=== PATIENT | female | born 1965 | race Hispanic/Latino ===

== ENCOUNTER 2016-05-05 20:25 | Emergency (ER) | payer MEDICAID ==
[2016-05-05 20:50] VITALS: BP 159/99
[2016-05-05 21:18] LABS: Basophils % (Auto) 0.7 % (0.0-1.8); Eosinophils % (Auto) 1.9 % (0.0-4.3); Hemoglobin 14.5 gm/dl (10.1-14.3); Mean Corpuscular HGB Conc 34 % (30-34); Mean Corpuscular Hemoglobin 28 pg (28-32); Mean Corpuscular Volume 83 fl (79-97); Platelet Count 373 K/mm3 (140-440); Red Blood Count 5.18 M/mm3 (3.65-5.03); Red Cell Distribution Width 13.2 % (13.2-15.2); White Blood Count 7.2 K/mm3 (4.5-11.0)
[2016-05-05 21:38] LABS: Anion Gap 18 mmol/L; BUN/Creatinine Ratio 8.75; Blood Urea Nitrogen 7 mg/dL (7-17); Calcium 9.4 mg/dL (8.4-10.2); Carbon Dioxide 25 mmol/L (22-30); Chloride 101.7 mmol/L (98-107); Glucose 93 mg/dL (65-100); Potassium 3.4 mmol/L (3.6-5.0); Sodium 141 mmol/L (137-145)
--- NOTE | 2016-05-06 19:33 | ED Elopement Review ---
ED Pt Elopement review - Results review Lab results: Laboratory Tests 05/05/16 05/05/16 21:10 21:10 WBC 7.2 RBC 5.18 H Hgb 14.5 H Hct 43.0 H MCV 83 MCH 28 MCHC 34 RDW 13.2 Plt Count 373 Lymph % (Auto) 19.5 [place] % (Auto) 6.9 Eos % (Auto) 1.9 Baso % (Auto) 0.7 Lymph # 1.4 [place] # 0.5 Eos # 0.1 Baso # 0.0 Seg Neutrophils % 71.0 H Seg Neutrophils # 5.1 Sodium 141 Potassium 3.4 L Chloride 101.7 Carbon Dioxide 25 Anion Gap 18 BUN 7 Creatinine 0.8 Estimated GFR > 60 BUN/Creatinine Ratio 8.75 Glucose 93 Calcium 9.4 Troponin T < 0.010 - Call Back decision Pt Call Back Decision: No action required
== END 2016-05-06 00:30 | disposition left against medical advice (07) ==
LOC: ED 20:25
DX: R07.9 Chest pain, unspecified (principal); I10 Essential (primary) hypertension; J45.909 Unspecified asthma, uncomplicated; M19.90 Unspecified osteoarthritis, unspecified site; Z88.6 Allergy status to analgesic agent; Z88.5 Allergy status to narcotic agent; Z88.8 Allergy status to other drugs, medicaments and biological substances; Z53.21 Procedure and treatment not carried out due to patient leaving prior to being seen by health care provider
CPT/HCPCS: 36415; 80048; 84484; 85025; 93005; 93010

== ENCOUNTER 2018-06-14 12:17 | Emergency (ER) | payer MEDICAID ==
[2018-06-14] MEDS ORDERED: ASPIRIN PO ONE (12:27)
[2018-06-14 12:28] VITALS: BP 137/94
[2018-06-14 12:46] LABS: Basophils # (Auto) 0.1 K/mm3 (0.0-0.1); Basophils % (Auto) 0.6 % (0.0-1.8); Eosinophils % (Auto) 0.5 % (0.0-4.3); Hematocrit 41.1 % (30.3-42.9); Lymphocytes # (Auto) 2.8 K/mm3 (1.2-5.4); Lymphocytes % (Auto) 29.4 % (13.4-35.0); Mean Corpuscular HGB Conc 34 % (30-34); Mean Corpuscular Volume 87 fl (79-97); Monocytes # (Auto) 0.7 K/mm3 (0.0-0.8); Monocytes % (Auto) 7.4 % (0.0-7.3); Platelet Count 340 K/mm3 (140-440); Red Cell Distribution Width 13.5 % (13.2-15.2)
[2018-06-14 13:19] LABS: BUN/Creatinine Ratio 16; Blood Urea Nitrogen 13 mg/dL (7-17); Calcium 9.4 mg/dL (8.4-10.2); Hemolysis Index 20
--- NOTE | 2018-06-14 13:51 | XRay Report ---
PROCEDURE: XR CHEST 1V AP TECHNIQUE: Single frontal view of the chest HISTORY: Chest Pain COMPARISONS: None. FINDINGS: The cardiomediastinal silhouette is normal in appearance. The lungs are clear without focal consolidation. No pleural effusion or pneumothorax. No acute bony or soft tissue abnormality. IMPRESSION: No acute cardiopulmonary disease. This document is electronically signed by Ramona Turcios MD., June 14 2018 01:49:42 PM ET
--- NOTE | 2018-06-14 15:39 | Emergency Department Report ---
ED General Adult HPI - General Chief complaint: Chest Pain Stated complaint: CHEST PAIN/HEADACHE Time Seen by Provider: 06/14/18 14:59 Source: patient Mode of arrival: Ambulatory Limitations: No Limitations - History of Present Illness Initial comments: Patient is 52 years old female with history of anxiety and migraine. Patient presented to the ER complaining of generalized numbness, chest pain described as tightness associated with right shoulder pain. Patient denied any shortness of breath, fever or cough. Severity scale (0 -10): 10 - Related Data Home Medications Medication Instructions Recorded Confirmed Last Taken Amitriptyline [Elavil] 25 mg PO QHS 06/10/14 06/10/14 06/10/14 HYDROcodone/APAP 7.5-325 06/10/14 06/10/14 06/10/14 Lisinopril/Hydrochlorothiazide 1 tab PO QDAY 06/10/14 06/10/14 06/10/14 [Zestoretic 20-12.5 mg] Loratadine [Claritin] 10 mg PO DAILY 06/10/14 06/10/14 06/10/14 Omeprazole [PriLOSEC] 20 mg PO BID 06/10/14 06/10/14 06/10/14 Slimquick 06/10/14 06/10/14 06/10/14 Terbinafine (Nf) [LamiSIL] 250 mg PO QDAY 06/10/14 06/10/14 06/10/14 Tizanidine HCl [Zanaflex] 4 mg PO BID 06/10/14 06/10/14 06/10/14 diazePAM [Diazepam] 10 mg PO BID 06/10/14 06/10/14 06/10/14 Allergies Allergy/AdvReac Type Severity Reaction Status Date / Time ibuprofen AdvReac Unknown Verified 06/14/18 12:18 morphine AdvReac Unknown Verified 06/14/18 12:18 tramadol AdvReac Unknown Verified 06/14/18 12:18 ED Review of Systems ROS: Stated complaint: CHEST PAIN/HEADACHE Other details as noted in HPI Comment: All other systems reviewed and negative Constitutional: denies: chills, fever Respiratory: denies: cough, orthopnea, shortness of breath, SOB with exertion, SOB at rest, wheezing Cardiovascular: denies: chest pain, palpitations Gastrointestinal: denies: abdominal pain, nausea, vomiting, diarrhea, constipation, hematemesis, melena, hematochezia Musculoskeletal: denies: back pain Neurological: numbness. denies: headache, weakness, paresthesias, confusion, abnormal gait Psychiatric: anxiety ED Past Medical Hx - Past Medical History Hx Hypertension: Yes Hx Asthma: Yes Additional medical history: arthritis. vertigo - Surgical History Hx Cholecystectomy: Yes Additional Surgical History: tubal ligation - Social History Smoking Status: Former Smoker Substance Use Type: None - Medications Home Medications: Home Medications Medication Instructions Recorded Confirmed Last Taken Type Amitriptyline [Elavil] 25 mg PO QHS 06/10/14 06/10/14 06/10/14 History HYDROcodone/APAP 7.5-325 06/10/14 06/10/14 06/10/14 History Lisinopril/Hydrochlorothiazide 1 tab PO QDAY 06/10/14 06/10/14 06/10/14 History [Zestoretic 20-12.5 mg] Loratadine [Claritin] 10 mg PO DAILY 06/10/14 06/10/14 06/10/14 History Omeprazole [PriLOSEC] 20 mg PO BID 06/10/14 06/10/14 06/10/14 History Slimquick 06/10/14 06/10/14 06/10/14 History Terbinafine (Nf) [LamiSIL] 250 mg PO QDAY 06/10/14 06/10/14 06/10/14 History Tizanidine HCl [Zanaflex] 4 mg PO BID 06/10/14 06/10/14 06/10/14 History diazePAM [Diazepam] 10 mg PO BID 06/10/14 06/10/14 06/10/14 History ED Physical Exam - General Limitations: No Limitations General appearance: alert, in no apparent distress, anxious - Head Head exam: Present: atraumatic, normocephalic, normal inspection - Eye Eye exam: Present: normal appearance, PERRL - ENT ENT exam: Present: normal exam, normal orophraynx, mucous membranes moist - Neck Neck exam: Present: normal inspection, full ROM. Absent: tenderness, meningismus, lymphadenopathy, thyromegaly - Respiratory Respiratory exam: Present: normal lung sounds bilaterally - Cardiovascular Cardiovascular Exam: Present: regular rate, normal rhythm, normal heart sounds - GI/Abdominal GI/Abdominal exam: Present: soft, normal bowel sounds. Absent: distended, tenderness, guarding, rebound, rigid, diminished bowel sounds, organomegaly, mass, bruit, pulsatile mass - Extremities Exam Extremities exam: Present: normal inspection, full ROM, normal capillary refill - Back Exam Back exam: Present: normal inspection, full ROM. Absent: tenderness, CVA tenderness (R), CVA tenderness (L), muscle spasm, paraspinal tenderness, vertebral tenderness - Neurological Exam Neurological exam: Present: alert, oriented X3, CN II-XII intact, normal gait, reflexes normal - Psychiatric Psychiatric exam: Present: anxious. Absent: depressed, agitated, flat affect, manic, homicidal ideation, suicidal ideation - Skin Skin exam: Present: warm, intact, normal color ED Course Vital Signs 06/14/18 12:26 Temperature 98.4 F Pulse Rate 96 H Respiratory 20 Rate Blood Pressure 137/94 O2 Sat by Pulse 97 Oximetry ED Medical Decision Making - Lab Data Result diagrams: 06/14/18 12:37 06/14/18 12:34 - EKG Data -: EKG Interpreted by Ne EKG shows normal: sinus rhythm Rate: normal - EKG Data Interpretation: no acute changes - Radiology Data Radiology results: report reviewed Chest x-ray is unremarkable. - Medical Decision Making Patient is 52 years old female with history of anxiety and migraine. Patient presented to the ER complaining of generalized numbness, chest pain described as tightness associated with right shoulder pain. Patient denied any shortness of breath, fever or cough. Patient EKG did not show any ST elevation or depression. Chest x-ray is unremarkable. 2 sets of troponin is negative. D-dimer is negative. Patient is dealing with a lot of stress and anxiety. I advised patient to follow-up with her primary care physician in the next 2-3 days and to return to the ER if symptoms are not improved. Critical care attestation.: If time is entered above; I have spent that time in minutes in the direct care of this critically ill patient, excluding procedure time. ED Disposition Clinical Impression: Chest pain, Headache, Anxiety Disposition: -01 TO HOME OR SELFCARE Is pt being admited?: No Condition: Stable Instructions: Chest Pain (ED) Referrals: MILLIE HEWITT MD [Primary Care Provider] - 3-5 Days
[2018-06-14 16:29] LABS: Amphetamine Screen,Urine PRESUMPTIVE NEGATIVE; Benzodiazepines Screen,Urine PRESUMPTIVE NEGATIVE; Cannabinoid Screen,Urine PRESUMPTIVE NEGATIVE; Cocaine Screen,Urine PRESUMPTIVE NEGATIVE; Methadone Screen,Urine PRESUMPTIVE NEGATIVE; Opiate Screen,Urine PRESUMPTIVE NEGATIVE
[2018-06-14] MEDS ORDERED: ZOFRAN IM ONE (17:04)
[2018-06-14] MEDS ORDERED: MORPHINE IM ONE (17:04)
== END 2018-06-14 17:40 | disposition home or self-care (01) ==
LOC: ED 12:17
DX: R07.89 Other chest pain (principal); F41.9 Anxiety disorder, unspecified; R51 Headache; I10 Essential (primary) hypertension; J45.909 Unspecified asthma, uncomplicated; Z87.891 Personal history of nicotine dependence; Z98.51 Tubal ligation status; Z90.49 Acquired absence of other specified parts of digestive tract; Z79.899 Other long term (current) drug therapy; Z88.6 Allergy status to analgesic agent
CPT/HCPCS: 36415; 71045; 80048; 80307; 84484; 85025; 85379; 93005; 93010; 96372; 99284; J2270; J2405

== ENCOUNTER 2019-07-10 12:51 | Emergency (ER) | payer MEDICAID ==
[2019-07-10 13:58] LABS: Basophils # (Auto) 0.1 K/mm3 (0.0-0.1); Basophils % (Auto) 1.4 % (0.0-1.8); Eosinophils # (Auto) 0.2 K/mm3 (0.0-0.4); Eosinophils % (Auto) 3.3 % (0.0-4.3); Hematocrit 41.5 % (30.3-42.9); Hemoglobin 13.8 gm/dl (10.1-14.3); Lymphocytes # (Auto) 1.3 K/mm3 (1.2-5.4); Lymphocytes % (Auto) 27.6 % (13.4-35.0); Mean Corpuscular HGB Conc 33 % (30-34); Mean Corpuscular Volume 86 fl (79-97); Monocytes # (Auto) 0.3 K/mm3 (0.0-0.8); Platelet Count 253 K/mm3 (140-440); Red Blood Count 4.81 M/mm3 (3.65-5.03); Red Cell Distribution Width 13.3 % (13.2-15.2)
[2019-07-10 15:01] LABS: Alanine Aminotransferase 20 units/L (7-56); BUN/Creatinine Ratio 15; Blood Urea Nitrogen 9 mg/dL (7-17); Calcium 9.1 mg/dL (8.4-10.2); Hemolysis Index 17
[2019-07-10] MEDS ORDERED: ONDANSETRON 4 MG/2 ML INJ IV ONE (15:04)
[2019-07-10] MEDS ORDERED: MORPHINE 4 MG/1 ML INJ IV ONE (15:04)
[2019-07-10 17:39] LABS: Bacteria,Urine 1+ /HPF (Negative); Bilirubin,Urine NEG (Negative); Blood,Urine NEG (Negative); Color,Urine Straw (Yellow); Protein,Urine <15 mg/dL mg/dL (Negative); Urobilinogen,Urine < 2.0 mg/dL (<2.0)
--- NOTE | 2019-07-10 18:16 | Emergency Department Report ---
ED General Adult HPI - General Chief complaint: Abdominal Pain Stated complaint: STOMACH AND MOUTH PAIN Time Seen by Provider: 07/10/19 14:15 Source: patient Mode of arrival: Ambulatory Limitations: No Limitations - History of Present Illness Initial comments: pt is a 53 yo female who presents to the ED with c/o left lower quadrant pain for a week. she states she also noticed blisters to the mouth for a couple days. she states that she had a couple episodes of N/V. she has been able to tolerate PO intake. she states that her abdomen feels bloated and states she has gained weight. she denies diarrhea, fever, no blood in stool or vomit. PMHx HTN, GERD, depression, anxiety, HLD. allergy: ibuprofen, tramadol. states she is not allergic to morphine. states that her doctor gave her amoxicillin for a sore throat last week. she states yesterday she had a normal BM. she denies any dysuria. Severity scale (0 -10): 6 - Related Data Home Medications Medication Instructions Recorded Confirmed Last Taken Amitriptyline [Elavil] 25 mg PO QHS 06/10/14 06/10/14 06/10/14 HYDROcodone/APAP 7.5-325 06/10/14 06/10/14 06/10/14 Lisinopril/Hydrochlorothiazide 1 tab PO QDAY 06/10/14 06/10/14 06/10/14 [Zestoretic 20-12.5 mg] Loratadine (Nf) [Claritin] 10 mg PO DAILY 06/10/14 06/10/14 06/10/14 Omeprazole [PriLOSEC] 20 mg PO BID 06/10/14 06/10/14 06/10/14 Slimquick 06/10/14 06/10/14 06/10/14 Terbinafine (Nf) [LamiSIL] 250 mg PO QDAY 06/10/14 06/10/14 06/10/14 Tizanidine HCl [Zanaflex] 4 mg PO BID 06/10/14 06/10/14 06/10/14 diazePAM [Diazepam] 10 mg PO BID 06/10/14 06/10/14 06/10/14 Previous Rx's Medication Instructions Recorded Last Taken Type HYDROcodone/APAP 7.5-325 [[place] 1 each PO Q8HR PRN #6 tablet 06/14/18 Unknown Rx 7.5-325 mg TAB] Famotidine [Pepcid] 40 mg PO QHS #30 tablet 07/10/19 Unknown Rx Hyoscyamine Subl [Levsin Sl 0.125 0.125 mg SL Q6HR PRN #10 tab 07/10/19 Unknown Rx TAB] Nystatin [Nystatin SUSP] 5 ml PO TID #150 ml 07/10/19 Unknown Rx Ondansetron [Zofran Odt] 4 mg PO Q8HR PRN #10 tab.rapdis 07/10/19 Unknown Rx Allergies Allergy/AdvReac Type Severity Reaction Status Date / Time amoxicillin Allergy Hives Verified 07/10/19 15:19 ibuprofen Allergy Hives Verified 07/10/19 15:19 tramadol Allergy Unknown Verified 07/10/19 15:19 ED Review of Systems ROS: Stated complaint: STOMACH AND MOUTH PAIN Other details as noted in HPI Comment: All other systems reviewed and negative ED Past Medical Hx - Past Medical History Hx Hypertension: Yes Hx Asthma: Yes Additional medical history: arthritis. vertigo - Surgical History Hx Cholecystectomy: Yes Additional Surgical History: tubal ligation - Social History Smoking Status: Never Smoker Substance Use Type: None - Medications Home Medications: Home Medications Medication Instructions Recorded Confirmed Last Taken Type Amitriptyline [Elavil] 25 mg PO QHS 06/10/14 06/10/14 06/10/14 History HYDROcodone/APAP 7.5-325 06/10/14 06/10/14 06/10/14 History Lisinopril/Hydrochlorothiazide 1 tab PO QDAY 06/10/14 06/10/14 06/10/14 History [Zestoretic 20-12.5 mg] Loratadine (Nf) [Claritin] 10 mg PO DAILY 06/10/14 06/10/14 06/10/14 History Omeprazole [PriLOSEC] 20 mg PO BID 06/10/14 06/10/14 06/10/14 History Slimquick 06/10/14 06/10/14 06/10/14 History Terbinafine (Nf) [LamiSIL] 250 mg PO QDAY 06/10/14 06/10/14 06/10/14 History Tizanidine HCl [Zanaflex] 4 mg PO BID 06/10/14 06/10/14 06/10/14 History diazePAM [Diazepam] 10 mg PO BID 06/10/14 06/10/14 06/10/14 History HYDROcodone/APAP 7.5-325 [[place] 1 each PO Q8HR PRN #6 tablet 06/14/18 Unknown Rx 7.5-325 mg TAB] Famotidine [Pepcid] 40 mg PO QHS #30 tablet 07/10/19 Unknown Rx Hyoscyamine Subl [Levsin Sl 0.125 0.125 mg SL Q6HR PRN #10 tab 07/10/19 Unknown Rx TAB] Nystatin [Nystatin SUSP] 5 ml PO TID #150 ml 07/10/19 Unknown Rx Ondansetron [Zofran Odt] 4 mg PO Q8HR PRN #10 tab.rapdis 07/10/19 Unknown Rx ED Physical Exam - General Limitations: No Limitations General appearance: alert, in no apparent distress - Head Head exam: Present: atraumatic, normocephalic - Eye Eye exam: Present: normal appearance - ENT ENT exam: Present: mucous membranes moist, other (white plaques that easily scrape off present on the tongue, normal oropharynx) - Respiratory Respiratory exam: Present: normal lung sounds bilaterally. Absent: respiratory distress, wheezes, rales, rhonchi, stridor, chest wall tenderness, accessory muscle use, decreased breath sounds, prolonged expiratory - Cardiovascular Cardiovascular Exam: Present: regular rate, normal rhythm, normal heart sounds. Absent: systolic murmur, diastolic murmur, rubs, gallop - GI/Abdominal GI/Abdominal exam: Present: soft, distended, tenderness (mild generalized), normal bowel sounds. Absent: guarding, rebound, rigid - Neurological Exam Neurological exam: Present: alert, oriented X3 - Psychiatric Psychiatric exam: Present: normal affect, normal mood - Skin Skin exam: Present: warm, dry, intact ED Course Vital Signs 07/10/19 07/10/19 13:06 21:04 Temperature 99.7 F H 98.4 F Pulse Rate 93 H 78 Respiratory 20 18 Rate Blood Pressure 132/84 Blood Pressure 125/58 [Left] O2 Sat by Pulse 94 96 Oximetry ED Medical Decision Making - Lab Data Result diagrams: 07/10/19 13:11 07/10/19 13:11 Lab Results 0507/10/19 07/10/19 Range/Units 13:11 13:11 14:20 WBC 4.8 (4.5-11.0) K/mm3 RBC 4.81 (3.65-5.03) M/mm3 Hgb 13.8 (10.1-14.3) gm/dl Hct 41.5 (30.3-42.9) % MCV 86 (79-97) fl MCH 29 (28-32) pg MCHC 33 (30-34) % RDW 13.3 (13.2-15.2) % Plt Count 253 (140-440) K/mm3 Lymph % (Auto) 27.6 (13.4-35.0) % [place] % (Auto) 7.0 (0.0-7.3) % Eos % (Auto) 3.3 (0.0-4.3) % Baso % (Auto) 1.4 (0.0-1.8) % Lymph # 1.3 (1.2-5.4) K/mm3 [place] # 0.3 (0.0-0.8) K/mm3 Eos # 0.2 (0.0-0.4) K/mm3 Baso # 0.1 (0.0-0.1) K/mm3 Seg Neutrophils % 60.7 (40.0-70.0) % Seg Neutrophils # 2.9 (1.8-7.7) K/mm3 Sodium 139 (137-145) mmol/L Potassium 4.0 (3.6-5.0) mmol/L Chloride 98.6 (98-107) mmol/L Carbon Dioxide 23 (22-30) mmol/L Anion Gap 21 mmol/L BUN 9 (7-17) mg/dL Creatinine 0.6 L (0.7-1.2) mg/dL Estimated GFR > 60 ml/min BUN/Creatinine Ratio 15 % Glucose 125 H (65-100) mg/dL Calcium 9.1 (8.4-10.2) mg/dL Total Bilirubin 0.20 (0.1-1.2) mg/dL AST 32 (5-40) units/L ALT 20 (7-56) units/L Alkaline Phosphatase 71 (35-129) units/L Total Protein 6.6 (6.3-8.2) g/dL Albumin 4.0 (3.9-5) g/dL Albumin/Globulin Ratio 1.5 % Lipase 35 (13-60) units/L Urine Color (Yellow) Urine Turbidity (Clear) Urine pH (5.0-7.0) Ur Specific Sophia (1.003-1.030) Urine Protein (Negative) mg/dL Urine Glucose (UA) (Negative) mg/dL Urine Ketones (Negative) mg/dL Urine Blood (Negative) Urine Nitrite (Negative) Urine Bilirubin (Negative) Urine Urobilinogen (<2.0) mg/dL Ur Leukocyte Esterase (Negative) Urine WBC (Auto) (0.0-6.0) /HPF Urine RBC (Auto) (0.0-6.0) /HPF U Epithel Cells (Auto) (0-13.0) /HPF Urine Bacteria (Auto) (Negative) /HPF 07/10/19 Range/Units 16:30 WBC (4.5-11.0) K/mm3 RBC (3.65-5.03) M/mm3 Hgb (10.1-14.3) gm/dl Hct (30.3-42.9) % MCV (79-97) fl MCH (28-32) pg MCHC (30-34) % RDW (13.2-15.2) % Plt Count (140-440) K/mm3 Lymph % (Auto) (13.4-35.0) % [place] % (Auto) (0.0-7.3) % Eos % (Auto) (0.0-4.3) % Baso % (Auto) (0.0-1.8) % Lymph # (1.2-5.4) K/mm3 [place] # (0.0-0.8) K/mm3 Eos # (0.0-0.4) K/mm3 Baso # (0.0-0.1) K/mm3 Seg Neutrophils % (40.0-70.0) % Seg Neutrophils # (1.8-7.7) K/mm3 Sodium (137-145) mmol/L Potassium (3.6-5.0) mmol/L Chloride (98-107) mmol/L Carbon Dioxide (22-30) mmol/L Anion Gap mmol/L BUN (7-17) mg/dL Creatinine (0.7-1.2) mg/dL Estimated GFR ml/min BUN/Creatinine Ratio % Glucose (65-100) mg/dL Calcium (8.4-10.2) mg/dL Total Bilirubin (0.1-1.2) mg/dL AST (5-40) units/L ALT (7-56) units/L Alkaline Phosphatase (35-129) units/L Total Protein (6.3-8.2) g/dL Albumin (3.9-5) g/dL Albumin/Globulin Ratio % Lipase (13-60) units/L Urine Color Straw (Yellow) Urine Turbidity Clear (Clear) Urine pH 7.0 (5.0-7.0) Ur Specific Sophia 1.006 (1.003-1.030) Urine Protein <15 mg/dl (Negative) mg/dL Urine Glucose (UA) Neg (Negative) mg/dL Urine Ketones Neg (Negative) mg/dL Urine Blood Neg (Negative) Urine Nitrite Neg (Negative) Urine Bilirubin Neg (Negative) Urine Urobilinogen < 2.0 (<2.0) mg/dL Ur Leukocyte Esterase Neg (Negative) Urine WBC (Auto) 1.0 (0.0-6.0) /HPF Urine RBC (Auto) 1.0 (0.0-6.0) /HPF U Epithel Cells (Auto) 1.0 (0-13.0) /HPF Urine Bacteria (Auto) 1+ (Negative) /HPF - Radiology Data Radiology results: report reviewed CT ABDOMEN AND PELVIS WITH CONTRAST INDICATION / CLINICAL INFORMATION: Abdominal pain and distention on the left for several days with nausea. TECHNIQUE: Axial CT images were obtained through the abdomen and pelvis after 100 mL Omnipaque [address] scans at this location are performed using CT dose reduction for ALARA by means of automated exposure control. COMPARISON: None available. FINDINGS: LOWER CHEST: No significant abnormality. LIVER: Enlarged liver without suspicious focal lesion. Coarse calcification in the right lobe is noted, possibly representing a calcified granuloma. There is likely mild fatty infiltration diffusely. BILIARY SYSTEM: Gallbladder is surgically absent. No biliary dilatation. PANCREAS: No significant abnormality. SPLEEN: No significant abnormality. ADRENALS: No significant abnormality. KIDNEYS and URETERS: Nonobstructing 3 mm stone in a lower pole calyx on the left. Otherwise no significant abnormality of the kidneys and ureters. STOMACH / BOWEL: Most of the administered enteric contrast was in the colon extending to the rectum by the time of image acquisition. Stomach and small bowel are unremarkable. Normal appendix. No obstructive or acute inflammatory changes. No significant diverticulosis of the colon. PERITONEUM: No free fluid. No free air. No fluid collection. LYMPH NODES: No adenopathy. VASCULAR STRUCTURES: No significant abnormality. URINARY BLADDER: No significant abnormality. REPRODUCTIVE ORGANS: No significant abnormality. ADDITIONAL FINDINGS: None. SKELETAL SYSTEM: No significant abnormality. IMPRESSION: 1. Hepatomegaly and mild hepatic steatosis. 2. Nonobstructing 3 mm left renal calculus. 3. Previous cholecystectomy. Signer Name: Carlos Van MD Signed: 07/10/2019 7:51 PM Workstation Name: [id number] Transcribed By: PATRICIA Dictated By: Carlos Van MD Electronically Authenticated By: Carlos Van MD Signed Date/Time: 07/10/191950 DD/ 44 TD/TT: - Medical Decision Making pt is a 53 yo female who presents to the ED with c/o left lower quadrant pain for a week. she states she also noticed blisters to the mouth for a couple days. she states that she had a couple episodes of N/V. she has been able to tolerate PO intake. she states that her abdomen feels bloated and states she has gained weight. she denies diarrhea, fever, no blood in stool or vomit. PMHx HTN, GERD, depression, anxiety, HLD. allergy: ibuprofen, tramadol. states she is not allergic to morphine. states that her doctor gave her amoxicillin for a sore throat last week. she states yesterday she had a normal BM. she denies any dysuria. vitals are stable. on exam: mild generalized abd ttp, abdomen distension, no guarding, no rebound, no peritoneal sign, normal bowel sounds, white plaques that easily scrape off present on the tongue, normal oropharynx. Examination consistent with oral thrush. Labs are stable, UA without evidence of UTI. CT abdomen pelvis with IV contrast 1. Hepatomegaly and mild hepatic steatosis. 2. Nonobstructing 3 mm left renal calculus. 3. Previous cholecystectomy. Patient given Zofran and morphine and abdominal pain improved and she was feeling much better ready to go home. Discussed all results with patient and answered questions. Patient given prescription for Zofran, Levsin, nystatin, Pepcid. Patient will be referred to a GI doctor. Advised patient Please use medication as prescribed. Please follow-up with a GI doctor. Please follow-up with a primary care doctor. Increase your fluid intake. Return to emergency room for any new or worsening symptoms. Critical care attestation.: If time is entered above; I have spent that time in minutes in the direct care of this critically ill patient, excluding procedure time. ED Disposition Clinical Impression: Hepatomegaly, Nephrolithiasis, Oral thrush Abdominal pain Qualifiers: Abdominal location: generalized Qualified Code(s): R10.84 - Generalized abdominal pain Nausea & vomiting Qualifiers: Vomiting type: unspecified Vomiting Intractability: non-intractable Qualified Code(s): R11.2 - Nausea with vomiting, unspecified Disposition: TO HOME OR SELFCARE Is pt being admited?: No Does the pt Need Aspirin: No Condition: Stable Instructions: Kidney Stones (ED), Oral Candidiasis (ED), Acute Nausea and Vomiting (ED), Abdominal Pain (ED) Additional Instructions: Please use medication as prescribed. Please follow-up with a GI doctor. Please follow-up with a primary care doctor. Increase your fluid intake. Return to emergency room for any new or worsening symptoms. Prescriptions: Famotidine [Pepcid] 40 mg PO QHS #30 tablet Hyoscyamine Subl [Levsin Sl 0.125 TAB] 0.125 mg SL Q6HR PRN #10 tab PRN Reason: abdominal pain Nystatin [Nystatin SUSP] 5 ml PO TID #150 ml Ondansetron [Zofran Odt] 4 mg PO Q8HR PRN #10 tab.rapdis PRN Reason: Nausea And Vomiting Referrals: CORBIN RIVERA MD [Primary Care Provider] - 2-3 Days YULIYA STEPHENS MD [Staff Physician] - 2-3 Days Time of Disposition: 19:59 Print Language: GUINEAN
[2019-07-10 21:06] VITALS: BP 125/58
== END 2019-07-10 21:06 | disposition home or self-care (01) ==
LOC: ED 12:51
DX: R16.0 Hepatomegaly, not elsewhere classified (principal); N20.0 Calculus of kidney; B37.0 Candidal stomatitis; R11.2 Nausea with vomiting, unspecified; R10.32 Left lower quadrant pain; I10 Essential (primary) hypertension; J45.909 Unspecified asthma, uncomplicated; M19.91 Primary osteoarthritis, unspecified site; Z90.49 Acquired absence of other specified parts of digestive tract; Z98.51 Tubal ligation status; Z79.899 Other long term (current) drug therapy; Z88.1 Allergy status to other antibiotic agents; Z88.8 Allergy status to other drugs, medicaments and biological substances
CPT/HCPCS: 36415; 74177; 80053; 81001; 83690; 85025; 96374; 96375; 99284; J2270; J2405; Q9967

== ENCOUNTER 2019-12-21 20:51 | Emergency (ER) | payer MEDICAID ==
[2019-12-21 21:15] VITALS: BP 124/54
[2019-12-21] MEDS ORDERED: FAMOTIDINE 20 MG TAB PO ONE (22:39)
[2019-12-21] MEDS ORDERED: DICYCLOMINE 20 MG TAB PO ONE (22:39)
--- NOTE | 2019-12-21 23:18 | XRay Report ---
CHEST 1 VIEW INDICATION / CLINICAL INFORMATION: cough. FINDINGS: SUPPORT DEVICES: None. HEART / MEDIASTINUM: No significant abnormality. LUNGS / PLEURA: No significant pulmonary or pleural abnormality. No pneumothorax. ADDITIONAL FINDINGS: No significant additional findings. IMPRESSION: 1. No acute findings. Signer Name: Parrish Love MD Signed: 12/21/2019 11:14 PM Workstation Name: [id number]
[2019-12-21 23:33] LABS: Bilirubin,Urine NEG (Negative); Blood,Urine NEG (Negative); Color,Urine Straw (Yellow); Protein,Urine <15 mg/dL mg/dL (Negative); WBC,Urine < 1.0 /HPF (0.0-6.0)
[2019-12-21 23:34] LABS: Alanine Aminotransferase 22 units/L (7-56); Blood Urea Nitrogen 6 mg/dL (7-17); Hemolysis Index 3
[2019-12-21 23:39] LABS: BUN/Creatinine Ratio 9
[2019-12-21 23:52] LABS: Red Cell Distribution Width 13.7 % (13.2-15.2)
[2019-12-21 23:59] LABS: Basophils # (Auto) 0.1 K/mm3 (0.0-0.1); Basophils % (Auto) 0.8 % (0.0-1.8); Eosinophils # (Auto) 0.2 K/mm3 (0.0-0.4); Eosinophils % (Auto) 2.8 % (0.0-4.3); Hematocrit 39.7 % (30.3-42.9); Hemoglobin 13.2 gm/dl (10.1-14.3); Lymphocytes # (Auto) 2.2 K/mm3 (1.2-5.4); Lymphocytes % (Auto) 32.4 % (13.4-35.0); Mean Corpuscular HGB Conc 33 % (30-34); Mean Corpuscular Volume 88 fl (79-97); Monocytes # (Auto) 0.6 K/mm3 (0.0-0.8); Monocytes % (Auto) 8.3 % (0.0-7.3); Platelet Count 225 K/mm3 (140-440); Red Blood Count 4.49 M/mm3 (3.65-5.03)
--- NOTE | 2019-12-22 01:56 | Emergency Department Report ---
ED Abdominal Pain HPI - General Chief Complaint: Abdominal Pain Stated Complaint: ABDOMINAL PAIN Source: patient Mode of arrival: Ambulatory Limitations: No Limitations - History of Present Illness Initial Comments: Patient is a 54-year-old morbidly obese female with a history of hypertension, asthma, chronic osteoarthritis and vertigo who presents to the ED with complaint of persistent dry cough with chest tightness for the last 1 week. Patient also complains of persistent intermittent abdominal muscle spasm and epigastric pain for 5 months. Patient states that she has been taking [id number] medication with no relief. Patient denies fever, chills, naus ea, vomiting, diarrhea, dizziness, syncope, chest pain, shortness of breath, sore throat, nasal and sinus congestion, palpitations, change in vision or nasal and sinus congestion. MD Complaint: abdominal pain, other (cough) -: week(s) (1) Location: diffuse Radiation: none Migration to: no migration Severity: mild Severity scale (0 -10): 2 Quality: aching, dull Consistency: intermittent Improves With: nothing Worsens With: nothing Associated Symptoms: denies other symptoms. denies: nausea, vomiting, diarrhea, fever - Related Data Home Medications Medication Instructions Recorded Confirmed Last Taken Amitriptyline [Elavil] 25 mg PO QHS 06/10/14 06/10/14 06/10/14 HYDROcodone/APAP 7.5-325 06/10/14 06/10/14 06/10/14 Lisinopril/Hydrochlorothiazide 1 tab PO QDAY 06/10/14 06/10/14 06/10/14 [Zestoretic 20-12.5 mg] Loratadine (Nf) [Claritin] 10 mg PO DAILY 06/10/14 06/10/14 06/10/14 Omeprazole [PriLOSEC] 20 mg PO BID 06/10/14 06/10/14 06/10/14 Slimquick 06/10/14 06/10/14 06/10/14 Terbinafine (Nf) [LamiSIL] 250 mg PO QDAY 06/10/14 06/10/14 06/10/14 Tizanidine HCl [Zanaflex] 4 mg PO BID 06/10/14 06/10/14 06/10/14 diazePAM [Diazepam] 10 mg PO BID 06/10/14 06/10/14 06/10/14 Previous Rx's Medication Instructions Recorded Last Taken Type HYDROcodone/APAP 7.5-325 [[place] 1 each PO Q8HR PRN #6 tablet 06/14/18 Unknown Rx 7.5-325 mg TAB] Famotidine [Pepcid] 40 mg PO QHS #30 tablet 07/10/19 Unknown Rx Hyoscyamine Subl [Levsin Sl 0.125 0.125 mg SL Q6HR PRN #10 tab 07/10/19 Unknown Rx TAB] Nystatin [Nystatin SUSP] 5 ml PO TID #150 ml 07/10/19 Unknown Rx Ondansetron [Zofran Odt] 4 mg PO Q8HR PRN #10 tab.rapdis 07/10/19 Unknown Rx Nystatin [Nystatin SUSP] 5 ml PO QID #200 ml 08/20/19 Unknown Rx Albuterol Sulfate [Proventil Hfa] 1 - 2 puff IH Q6H PRN #1 hfa.aer.ad 12/22/19 Unknown Rx Benzonatate [Tessalon Perles] 100 mg PO Q8HR #30 capsule 12/22/19 Unknown Rx Dicyclomine [Bentyl] 20 mg PO Q6H PRN #30 tablet 12/22/19 Unknown Rx Famotidine [Pepcid] 20 mg PO BID #60 tablet 12/22/19 Unknown Rx Allergies Allergy/AdvReac Type Severity Reaction Status Date / Time amoxicillin Allergy Hives Verified 07/10/19 15:19 ibuprofen Allergy Hives Verified 07/10/19 15:19 tramadol Allergy Unknown Verified 07/10/19 15:19 ED Review of Systems ROS: Stated complaint: ABDOMINAL PAIN Other details as noted in HPI Constitutional: denies: chills, fever Eyes: denies: eye pain, eye discharge, vision change ENT: denies: ear pain, throat pain Respiratory: cough. denies: shortness of breath, wheezing Cardiovascular: denies: chest pain, palpitations Endocrine: no symptoms reported Gastrointestinal: abdominal pain. denies: nausea, vomiting, diarrhea Genitourinary: denies: urgency, dysuria, discharge Musculoskeletal: denies: back pain, joint swelling, arthralgia Skin: denies: rash, lesions Neurological: denies: headache, weakness, paresthesias Psychiatric: denies: anxiety, depression Hematological/Lymphatic: denies: easy bleeding, easy bruising ED Past Medical Hx - Past Medical History Hx Hypertension: Yes Hx Asthma: Yes Additional medical history: arthritis. vertigo - Surgical History Hx Cholecystectomy: Yes Additional Surgical History: tubal ligation - Social History Smoking Status: Never Smoker Substance Use Type: None - Medications Home Medications: Home Medications Medication Instructions Recorded Confirmed Last Taken Type Amitriptyline [Elavil] 25 mg PO QHS 06/10/14 06/10/14 06/10/14 History HYDROcodone/APAP 7.5-325 06/10/14 06/10/14 06/10/14 History Lisinopril/Hydrochlorothiazide 1 tab PO QDAY 06/10/14 06/10/14 06/10/14 History [Zestoretic 20-12.5 mg] Loratadine (Nf) [Claritin] 10 mg PO DAILY 06/10/14 06/10/14 06/10/14 History Omeprazole [PriLOSEC] 20 mg PO BID 06/10/14 06/10/14 06/10/14 History Slimquick 06/10/14 06/10/14 06/10/14 History Terbinafine (Nf) [LamiSIL] 250 mg PO QDAY 06/10/14 06/10/14 06/10/14 History Tizanidine HCl [Zanaflex] 4 mg PO BID 06/10/14 06/10/14 06/10/14 History diazePAM [Diazepam] 10 mg PO BID 06/10/14 06/10/14 06/10/14 History HYDROcodone/APAP 7.5-325 [[place] 1 each PO Q8HR PRN #6 tablet 06/14/18 Unknown Rx 7.5-325 mg TAB] Famotidine [Pepcid] 40 mg PO QHS #30 tablet 07/10/19 Unknown Rx Hyoscyamine Subl [Levsin Sl 0.125 0.125 mg SL Q6HR PRN #10 tab 07/10/19 Unknown Rx TAB] Nystatin [Nystatin SUSP] 5 ml PO TID #150 ml 07/10/19 Unknown Rx Ondansetron [Zofran Odt] 4 mg PO Q8HR PRN #10 tab.rapdis 07/10/19 Unknown Rx Nystatin [Nystatin SUSP] 5 ml PO QID #200 ml 08/20/19 Unknown Rx Albuterol Sulfate [Proventil Hfa] 1 - 2 puff IH Q6H PRN #1 hfa.aer.ad 12/22/19 Unknown Rx Benzonatate [Tessalon Perles] 100 mg PO Q8HR #30 capsule 12/22/19 Unknown Rx Dicyclomine [Bentyl] 20 mg PO Q6H PRN #30 tablet 12/22/19 Unknown Rx Famotidine [Pepcid] 20 mg PO BID #60 tablet 12/22/19 Unknown Rx ED Physical Exam - General Limitations: No Limitations General appearance: alert, in no apparent distress - Head Head exam: Present: atraumatic, normocephalic, normal inspection - Eye Eye exam: Present: normal appearance, PERRL, EOMI Pupils: Present: normal accommodation - ENT ENT exam: Present: normal exam, normal orophraynx, mucous membranes moist, TM's normal bilaterally, normal external ear exam - Neck Neck exam: Present: normal inspection, full ROM - Respiratory Respiratory exam: Present: normal lung sounds bilaterally. Absent: respiratory distress, wheezes, rales, stridor, chest wall tenderness, accessory muscle use, decreased breath sounds - Cardiovascular Cardiovascular Exam: Present: regular rate, normal rhythm, normal heart sounds. Absent: systolic murmur, diastolic murmur, rubs, gallop - GI/Abdominal GI/Abdominal exam: Present: soft, normal bowel sounds. Absent: tenderness, guarding, rebound, hyperactive bowel sounds, hypoactive bowel sounds - Extremities Exam Extremities exam: Present: normal inspection, full ROM, normal capillary refill - Back Exam Back exam: Present: normal inspection, full ROM. Absent: tenderness, CVA tenderness (R), CVA tenderness (L), muscle spasm, paraspinal tenderness, vertebral tenderness - Neurological Exam Neurological exam: Present: alert, oriented X3, CN II-XII intact, normal gait, reflexes normal - Psychiatric Psychiatric exam: Present: normal affect, normal mood - Skin Skin exam: Present: warm, dry, intact, normal color. Absent: rash ED Course Vital Signs 12/21/19 21:14 Temperature 98.7 F Pulse Rate 97 H Respiratory 20 Rate Blood Pressure 124/54 [Right] O2 Sat by Pulse 98 Oximetry ED Medical Decision Making - Lab Data Result diagrams: 12/21/19 22:50 12/21/19 22:50 - Radiology Data Radiology results: report reviewed, image reviewed Findings [facility] [address] [place] [address] XRay Report Signed Patient: AMANDA MEEKS MR#: [id number] : 1965 Acct:[id number] Age/Sex: 54 / F ADM Date: 12/21/19 Loc: ED Attending Dr: Ordering Physician: CODY FIGUEROA Date of Service: 12/21/19 Procedure(s): XR chest 1V ap Accession Number(s): [id number] cc: CODY FIGUEROA Fluoro Time In Minutes: CHEST 1 VIEW INDICATION / CLINICAL INFORMATION: cough. FINDINGS: SUPPORT DEVICES: None. HEART / MEDIASTINUM: No significant abnormality. LUNGS / PLEURA: No significant pulmonary or pleural abnormality. No pneumothorax. ADDITIONAL FINDINGS: No significant additional findings. IMPRESSION: 1. No acute findings. Signer Name: Parrish Love MD Signed: 12/21/2019 11:14 PM Workstation Name: [id number] Transcribed By: BC Dictated By: Parrish Love MD Electronically Authenticated By: Parrish Love MD Signed Date/Time: 12/21/192313 DD/ 13 TD/TT: - Medical Decision Making This is a 54-year-old morbidly obese female with a history of hypertension, asthma, chronic osteoarthritis and vertigo who presents to the ED with complaint of persistent dry cough with chest tightness for the last 1 week. Patient also complains of persistent intermittent abdominal muscle spasm and epigastric pain for 5 months. Patient states that she has been taking over-the- counter medication with no relief. In the ED, patient is alert and oriented x3 and is not in distress but anxious in triage and during the physical exam. Patient was treated for pain and also given antacids. Chest x-ray shows no acute cardiopulmonary abnormalities or pneumonitis. Lab test results were reviewed and are all nonactionable. Patient was discharged home on medications and advised to follow-up with her primary care physician in 5 to 7 days for reevaluation. Patient was advised to return to the ED immediately if symptoms get worse. - Differential Diagnosis Bronchitis; GERD; muscle spasm; URI; pneumonia; UTI; Critical care attestation.: If time is entered above; I have spent that time in minutes in the direct care of this critically ill patient, excluding procedure time. ED Disposition Clinical Impression: Abdominal pain Qualifiers: Abdominal location: generalized Qualified Code(s): R10.84 - Generalized abdominal pain Acute bronchitis Qualifiers: Bronchitis organism: other organism Qualified Code(s): J20.8 - Acute bronchitis due to other specified organisms GERD (gastroesophageal reflux disease) Qualifiers: Esophagitis presence: without esophagitis Qualified Code(s): K21.9 - Gastro- esophageal reflux disease without esophagitis Disposition: TO HOME OR SELFCARE Is pt being admited?: No Does the pt Need Aspirin: No Condition: Stable Instructions: Abdominal Pain (ED), Acute Bronchitis (ED), Gastroesophageal Reflux Disease (ED) Additional Instructions: Take medication with food, drink plenty of fluids and follow-up with your primary care physician in 5 to 7 days for reevaluation. Return to the ED immedi ately if symptoms get worse. Prescriptions: Dicyclomine [Bentyl] 20 mg PO Q6H PRN #30 tablet PRN Reason: abdominal pain Famotidine [Pepcid] 20 mg PO BID #60 tablet Albuterol Sulfate [Proventil Hfa] 1 - 2 puff IH Q6H PRN #1 hfa.aer.ad PRN Reason: Dyspnea Benzonatate [Tessalon Perles] 100 mg PO Q8HR #30 capsule Referrals: [facility] [Provider Group] - 3-5 Days Time of Disposition: 01:57 Print Language: HONG KONGER
[2019-12-22 05:43] LABS: Platelet Estimate Consistent w Auto; Total Cells Counted 100
== END 2019-12-22 02:05 | disposition home or self-care (01) ==
LOC: ED 20:51
DX: K21.9 Gastro-esophageal reflux disease without esophagitis (principal); J20.9 Acute bronchitis, unspecified; R10.13 Epigastric pain; I10 Essential (primary) hypertension; J45.909 Unspecified asthma, uncomplicated; Z90.49 Acquired absence of other specified parts of digestive tract; Z98.51 Tubal ligation status; Z79.899 Other long term (current) drug therapy; Z88.1 Allergy status to other antibiotic agents; Z88.8 Allergy status to other drugs, medicaments and biological substances
CPT/HCPCS: 36415; 71045; 80053; 81001; 83690; 85007; 85025

== ENCOUNTER 2020-01-28 13:24 | Emergency (ER) | payer MEDICAID ==
[2020-01-28 14:38] VITALS: BP 150/100
--- NOTE | 2020-01-28 15:42 | Event Note ---
ED Screening Note ED Screening Note: upper abd pain that began two days ago states she has been having normal BM states after she eats it "calms it down" +nausea no v/d states she fell while getting out of the car and felt a popping sensation, right knee and tib/fib pain never injured before PSHx cholecystectomy, tubal ligation PMHx HTN, GERD, anxiety, depression allergy: amoxicillin, ibuprofen, tramadol This initial assessment/diagnostic orders/clinical plan/treatment(s) is/are subject to change based on patients health status, clinical progression and re- assessment by fellow clinical providers in the ED. Further treatment and workup at subsequent clinical providers discretion. Patient/guardian urged not to elope from the ED as their condition may be serious if not clinically assessed and managed. Initial orders include: labs XRs UA
--- NOTE | 2020-01-28 16:15 | XRay Report ---
RIGHT TIBIA-FIBULA 3 VIEW(S) INDICATION / CLINICAL INFORMATION: right tib/fib pain after fall COMPARISON: None available. FINDINGS: BONES / JOINT(S): No acute fracture or subluxation. Moderately advanced degenerative arthrosis right knee SOFT TISSUES: No significant abnormality. ADDITIONAL FINDINGS: None. Signer Name: Cholo Nicole MD Signed: 01/28/2020 4:11 PM Workstation Name: [id number]
--- NOTE | 2020-01-28 16:16 | XRay Report ---
Right KNEE 3 VIEW(S) INDICATION / CLINICAL INFORMATION: right knee pain after fall COMPARISON: None available. FINDINGS: BONES / JOINT(S): No acute fracture or subluxation. Moderate tricompartmental degenerative arthrosis right knee with 2 intra-articular bodies SOFT TISSUES: No significant abnormality. ADDITIONAL FINDINGS: None. Signer Name: Cholo Nicole MD Signed: 01/28/2020 4:11 PM Workstation Name: [id number]
[2020-01-28 16:44] LABS: Basophils # (Auto) 0.1 K/mm3 (0.0-0.1); Basophils % (Auto) 1.4 % (0.0-1.8); Eosinophils # (Auto) 0.2 K/mm3 (0.0-0.4); Eosinophils % (Auto) 3.7 % (0.0-4.3); Hematocrit 40.1 % (30.3-42.9); Hemoglobin 13.5 gm/dl (10.1-14.3); Lymphocytes # (Auto) 1.6 K/mm3 (1.2-5.4); Lymphocytes % (Auto) 28.5 % (13.4-35.0); Mean Corpuscular HGB Conc 34 % (30-34); Mean Corpuscular Volume 88 fl (79-97); Monocytes # (Auto) 0.4 K/mm3 (0.0-0.8); Monocytes % (Auto) 7.4 % (0.0-7.3); Platelet Count 203 K/mm3 (140-440); Red Blood Count 4.56 M/mm3 (3.65-5.03); Red Cell Distribution Width 13.9 % (13.2-15.2)
[2020-01-28 17:05] LABS: Alanine Aminotransferase 24 units/L (7-56); Albumin 3.7 g/dL (3.9-5); Blood Urea Nitrogen 7 mg/dL (7-17); Calcium 9.3 mg/dL (8.4-10.2); Hemolysis Index 20
[2020-01-28 17:06] LABS: BUN/Creatinine Ratio 12
[2020-01-28 17:13] LABS: Bilirubin,Urine NEG (Negative); Blood,Urine NEG (Negative); Color,Urine Straw (Yellow); Protein,Urine <15 mg/dL mg/dL (Negative); Urobilinogen,Urine < 2.0 mg/dL (<2.0); WBC,Urine < 1.0 /HPF (0.0-6.0)
--- NOTE | 2020-01-28 19:09 | Emergency Department Report ---
ED General Adult HPI - General Chief complaint: Abdominal Pain Stated complaint: STOMACH PAIN/RT KNEE PAIN Time Seen by Provider: 01/28/20 15:38 Source: patient Mode of arrival: Ambulatory Limitations: No Limitations - History of Present Illness Initial comments: 54-year-old female patient presents with complaints of intermittent abdominal cramping x3 months and right knee pain after a fall injury x1 day. Patient states she has been following with her PCP regarding her abdominal cramping. She reports it feels like something is moving inside of her denies any pain. Patient also denies any fever/chills/sweats, vomiting, diarrhea/constipation, melena/hematochezia, or abdominal swelling. No urinary symptoms. Patient states she fell getting out of the car yesterday and twisted her knee. She states there is mild swelling to the medial portion of the knee but denies any bruising or numbness/tingling in the leg. - Related Data Home Medications Medication Instructions Recorded Confirmed Last Taken Amitriptyline [Elavil] 25 mg PO QHS 06/10/14 06/10/14 06/10/14 HYDROcodone/APAP 7.5-325 06/10/14 06/10/14 06/10/14 Lisinopril/Hydrochlorothiazide 1 tab PO QDAY 06/10/14 06/10/14 06/10/14 [Zestoretic 20-12.5 mg] Loratadine (Nf) [Claritin] 10 mg PO DAILY 06/10/14 06/10/14 06/10/14 Omeprazole [PriLOSEC] 20 mg PO BID 06/10/14 06/10/14 06/10/14 Slimquick 06/10/14 06/10/14 06/10/14 Terbinafine (Nf) [LamiSIL] 250 mg PO QDAY 06/10/14 06/10/14 06/10/14 Tizanidine HCl [Zanaflex] 4 mg PO BID 06/10/14 06/10/14 06/10/14 diazePAM [Diazepam] 10 mg PO BID 06/10/14 06/10/14 06/10/14 Previous Rx's Medication Instructions Recorded Last Taken Type HYDROcodone/APAP 7.5-325 [[place] 1 each PO Q8HR PRN #6 tablet 06/14/18 Unknown Rx 7.5-325 mg TAB] Famotidine [Pepcid] 40 mg PO QHS #30 tablet 07/10/19 Unknown Rx Hyoscyamine Subl [Levsin Sl 0.125 0.125 mg SL Q6HR PRN #10 tab 07/10/19 Unknown Rx TAB] Nystatin [Nystatin SUSP] 5 ml PO TID #150 ml 07/10/19 Unknown Rx Ondansetron [Zofran Odt] 4 mg PO Q8HR PRN #10 tab.rapdis 07/10/19 Unknown Rx Nystatin [Nystatin SUSP] 5 ml PO QID #200 ml 08/20/19 Unknown Rx Albuterol Sulfate [Proventil Hfa] 1 - 2 puff IH Q6H PRN #1 hfa.aer.ad 12/22/19 Unknown Rx Benzonatate [Tessalon Perles] 100 mg PO Q8HR #30 capsule 12/22/19 Unknown Rx Dicyclomine [Bentyl] 20 mg PO Q6H PRN #30 tablet 12/22/19 Unknown Rx Famotidine [Pepcid] 20 mg PO BID #60 tablet 12/22/19 Unknown Rx Dicyclomine [Bentyl] 20 mg PO QID PRN #20 tablet 01/28/20 Unknown Rx Allergies Allergy/AdvReac Type Severity Reaction Status Date / Time amoxicillin Allergy Hives Verified 01/28/20 14:32 ibuprofen Allergy Hives Verified 01/28/20 14:32 tramadol Allergy Unknown Verified 01/28/20 14:32 ED Review of Systems ROS: Stated complaint: STOMACH PAIN/RT KNEE PAIN Other details as noted in HPI Constitutional: denies: malaise Respiratory: denies: cough, shortness of breath Cardiovascular: denies: chest pain Endocrine: denies: excessive sweating Gastrointestinal: nausea. denies: abdominal pain, vomiting, diarrhea, constipation, hematemesis, melena, hematochezia Genitourinary: denies: urgency, dysuria, frequency, hematuria Skin: denies: change in color Neurological: denies: headache, numbness, paresthesias Hematological/Lymphatic: denies: easy bleeding, swollen glands ED Past Medical Hx - Past Medical History Hx Hypertension: Yes Hx Asthma: Yes Additional medical history: arthritis. vertigo - Surgical History Hx Cholecystectomy: Yes Additional Surgical History: tubal ligation - Social History Smoking Status: Never Smoker Substance Use Type: None - Medications Home Medications: Home Medications Medication Instructions Recorded Confirmed Last Taken Type Amitriptyline [Elavil] 25 mg PO QHS 06/10/14 06/10/14 06/10/14 History HYDROcodone/APAP 7.5-325 06/10/14 06/10/14 06/10/14 History Lisinopril/Hydrochlorothiazide 1 tab PO QDAY 06/10/14 06/10/14 06/10/14 History [Zestoretic 20-12.5 mg] Loratadine (Nf) [Claritin] 10 mg PO DAILY 06/10/14 06/10/14 06/10/14 History Omeprazole [PriLOSEC] 20 mg PO BID 06/10/14 06/10/14 06/10/14 History Slimquick 06/10/14 06/10/14 06/10/14 History Terbinafine (Nf) [LamiSIL] 250 mg PO QDAY 06/10/14 06/10/14 06/10/14 History Tizanidine HCl [Zanaflex] 4 mg PO BID 06/10/14 06/10/14 06/10/14 History diazePAM [Diazepam] 10 mg PO BID 06/10/14 06/10/14 06/10/14 History HYDROcodone/APAP 7.5-325 [[place] 1 each PO Q8HR PRN #6 tablet 06/14/18 Unknown Rx 7.5-325 mg TAB] Famotidine [Pepcid] 40 mg PO QHS #30 tablet 07/10/19 Unknown Rx Hyoscyamine Subl [Levsin Sl 0.125 0.125 mg SL Q6HR PRN #10 tab 07/10/19 Unknown Rx TAB] Nystatin [Nystatin SUSP] 5 ml PO TID #150 ml 07/10/19 Unknown Rx Ondansetron [Zofran Odt] 4 mg PO Q8HR PRN #10 tab.rapdis 07/10/19 Unknown Rx Nystatin [Nystatin SUSP] 5 ml PO QID #200 ml 08/20/19 Unknown Rx Albuterol Sulfate [Proventil Hfa] 1 - 2 puff IH Q6H PRN #1 hfa.aer.ad 12/22/19 Unknown Rx Benzonatate [Tessalon Perles] 100 mg PO Q8HR #30 capsule 12/22/19 Unknown Rx Dicyclomine [Bentyl] 20 mg PO Q6H PRN #30 tablet 12/22/19 Unknown Rx Famotidine [Pepcid] 20 mg PO BID #60 tablet 12/22/19 Unknown Rx Dicyclomine [Bentyl] 20 mg PO QID PRN #20 tablet 01/28/20 Unknown Rx ED Physical Exam - General Limitations: No Limitations General appearance: alert, in no apparent distress, obese - Head Head exam: Present: atraumatic, normocephalic - Eye Eye exam: Present: normal appearance. Absent: scleral icterus - ENT ENT exam: Present: mucous membranes moist - Neck Neck exam: Present: normal inspection, full ROM - Respiratory Respiratory exam: Present: normal lung sounds bilaterally. Absent: respiratory distress - Cardiovascular Cardiovascular Exam: Present: regular rate, normal rhythm - GI/Abdominal GI/Abdominal exam: Present: soft, normal bowel sounds. Absent: distended, tenderness, guarding, rebound, rigid - Extremities Exam Extremities exam: Present: full ROM, other (Concentric tenderness to palpation of the right knee worse on the lateral portion of the knee without bruising noted. There is mild swelling noted to the medial portion of the knee that is nontender; no erythema noted; normal sensation and color is noted) - Back Exam Back exam: Present: full ROM - Neurological Exam Neurological exam: Present: alert, oriented X3 - Psychiatric Psychiatric exam: Present: normal affect, normal mood - Skin Skin exam: Present: warm, dry, intact, normal color. Absent: rash, cyanosis, diaphoretic, ecchymosis ED Course Vital Signs 01/28/20 14:37 Temperature 98.3 F Pulse Rate 94 H Respiratory 24 Rate Blood Pressure 150/100 O2 Sat by Pulse 97 Oximetry ED Medical Decision Making - Lab Data Result diagrams: 01/28/20 16:12 01/28/20 16:12 Lab Results 01/28/20 01/28/20 01/28/20 Range/Units 16:12 16:12 Unknown WBC 5.6 (4.5-11.0) K/mm3 RBC 4.56 (3.65-5.03) M/mm3 Hgb 13.5 (10.1-14.3) gm/dl Hct 40.1 (30.3-42.9) % MCV 88 (79-97) fl MCH 30 (28-32) pg MCHC 34 (30-34) % RDW 13.9 (13.2-15.2) % Plt Count 203 (140-440) K/mm3 Lymph % (Auto) 28.5 (13.4-35.0) % [place] % (Auto) 7.4 H (0.0-7.3) % Eos % (Auto) 3.7 (0.0-4.3) % Baso % (Auto) 1.4 (0.0-1.8) % Lymph # (Auto) 1.6 (1.2-5.4) K/mm3 [place] # (Auto) 0.4 (0.0-0.8) K/mm3 Eos # (Auto) 0.2 (0.0-0.4) K/mm3 Baso # (Auto) 0.1 (0.0-0.1) K/mm3 Seg Neutrophils % 59.0 (40.0-70.0) % Seg Neutrophils # 3.3 (1.8-7.7) K/mm3 Sodium 139 (137-145) mmol/L Potassium 4.0 (3.6-5.0) mmol/L Chloride 104.3 (98-107) mmol/L Carbon Dioxide 22 (22-30) mmol/L Anion Gap 17 mmol/L BUN 7 (7-17) mg/dL Creatinine 0.6 (0.6-1.2) mg/dL Estimated GFR > 60 ml/min BUN/Creatinine Ratio 12 % Glucose 91 (65-100) mg/dL Calcium 9.3 (8.4-10.2) mg/dL Total Bilirubin 0.30 (0.1-1.2) mg/dL AST 51 H (5-40) units/L ALT 24 (7-56) units/L Alkaline Phosphatase 68 (35-129) units/L Total Protein 6.8 (6.3-8.2) g/dL Albumin 3.7 L (3.9-5) g/dL Albumin/Globulin Ratio 1.2 % Lipase 28 (13-60) units/L Urine Color Straw (Yellow) Urine Turbidity Clear (Clear) Urine pH 7.0 (5.0-7.0) Ur Specific [place] 1.008 (1.003-1.030) Urine Protein <15 mg/dl (Negative) mg/dL Urine Glucose (UA) Neg (Negative) mg/dL Urine Ketones Neg (Negative) mg/dL Urine Blood Neg (Negative) Urine Nitrite Neg (Negative) Urine Bilirubin Neg (Negative) Urine Urobilinogen < 2.0 (<2.0) mg/dL Ur Leukocyte Esterase Neg (Negative) Urine WBC (Auto) < 1.0 (0.0-6.0) /HPF Urine RBC (Auto) 1.0 (0.0-6.0) /HPF U Epithel Cells (Auto) 1.0 (0-13.0) /HPF - Radiology Data Radiology results: report reviewed RIGHT TIBIA-FIBULA 3 VIEW(S) INDICATION / CLINICAL INFORMATION: right tib/fib pain after fall COMPARISON: None available. FINDINGS: BONES / JOINT(S): No acute fracture or subluxation. Moderately advanced degenerative arthrosis right knee SOFT TISSUES: No significant abnormality. ADDITIONAL FINDINGS: None. Right KNEE 3 VIEW(S) INDICATION / CLINICAL INFORMATION: right knee pain after fall COMPARISON: None available. FINDINGS: BONES / JOINT(S): No acute fracture or subluxation. Moderate tricompartmental degenerative arthrosis right knee with 2 intra-articular bodies SOFT TISSUES: No significant abnormality. ADDITIONAL FINDINGS: None. - Medical Decision Making 54-year-old female patient presents with complaints of intermittent abdominal cramping x3 months and right knee pain after a fall injury x1 day. Patient states she has been following with her PCP regarding her abdominal cramping. She reports it feels like something is moving inside of her denies any pain. Patient also denies any fever/chills/sweats, vomiting, diarrhea/constipation, melena/hematochezia, or abdominal swelling. No urinary symptoms. Patient states she fell getting out of the car yesterday and twisted her knee. She states there is mild swelling to the medial portion of the knee but denies any bruising or numbness/tingling in the leg. No abdominal tenderness noted on exam. Labs are without significant abnormalities. X-ray of the right knee and tibia/fibula are without acute bony abnormalities. Will treat for knee sprain. Patient placed in knee immobilizer and states she will ambulate with her walker. Recommend follow-up with orthopedics as needed. Also recommend follow-up with gastroenterology regarding chronic abdominal symptoms. She is well-appearing and stable for discharge ho me. Strict return precautions were discussed in detail with patient who verbalizes understanding. Critical care attestation.: If time is entered above; I have spent that time in minutes in the direct care of this critically ill patient, excluding procedure time. ED Disposition Clinical Impression: Abdominal cramping Injury of right knee Qualifiers: Encounter type: initial encounter Qualified Code(s): S89.91XA - Unspecified injury of right lower leg, initial encounter Disposition: TO HOME OR SELFCARE Is pt being admited?: No Condition: Stable Instructions: Abdominal Pain (ED), Abdominal Pain, Adult, Knee Sprain, Adult Prescriptions: Dicyclomine [Bentyl] 20 mg PO QID PRN #20 tablet PRN Reason: abdominal cramping Referrals: [facility] [Provider Group] - 3-5 Days [facility] [Provider Group] - 3-5 Days
[2020-01-28] MEDS ORDERED: ACETAMINOPHEN W/CODEINE 300-30 MG TAB PO ONE (20:04)
== END 2020-01-28 20:25 | disposition home or self-care (01) ==
LOC: ED 13:24
DX: S89.91XA Unspecified injury of right lower leg, initial encounter (principal); R10.9 Unspecified abdominal pain; I10 Essential (primary) hypertension; J45.909 Unspecified asthma, uncomplicated; Z90.49 Acquired absence of other specified parts of digestive tract; Z98.51 Tubal ligation status; Z79.899 Other long term (current) drug therapy; Z88.1 Allergy status to other antibiotic agents; Z88.8 Allergy status to other drugs, medicaments and biological substances; X58.XXXA Exposure to other specified factors, initial encounter; Y93.89 Activity, other specified; Y92.89 Other specified places as the place of occurrence of the external cause; Y99.8 Other external cause status
CPT/HCPCS: 36415; 80053; 81001; 83690; 85025

== ENCOUNTER 2021-05-31 22:33 | Emergency (ER) | payer MEDICAID ==
[2021-05-31 22:42] VITALS: BP 156/78
== END 2021-06-01 07:50 | disposition left against medical advice (07) ==
LOC: ED 22:33
DX: R53.1 Weakness (principal); Z53.21 Procedure and treatment not carried out due to patient leaving prior to being seen by health care provider

== ENCOUNTER 2021-11-05 14:56 | Emergency (ER) | payer MEDICAID ==
[2021-11-05 15:04] VITALS: BP 180/86
[2021-11-05 16:30] LABS: Eosinophils # (Auto) 0.1 K/mm3 (0.0-0.4); Eosinophils % (Auto) 2.6 % (0.0-4.3); Hematocrit 35.9 % (30.3-42.9); Lymphocytes # (Auto) 1.3 K/mm3 (1.2-5.4); Lymphocytes % (Auto) 31.6 % (13.4-35.0); Mean Corpuscular HGB Conc 34 % (30-34); Mean Corpuscular Volume 87 fl (79-97); Monocytes # (Auto) 0.3 K/mm3 (0.0-0.8); Monocytes % (Auto) 7.1 % (0.0-7.3); Platelet Count 170 K/mm3 (140-440); Red Blood Count 4.13 M/mm3 (3.65-5.03); Red Cell Distribution Width 17.5 % (13.2-15.2)
[2021-11-05 17:04] LABS: Alanine Aminotransferase 11 units/L (7-56); Albumin 3.8 g/dL (3.9-5); Blood Urea Nitrogen 5 mg/dL (7-17); Calcium 9.4 mg/dL (8.4-10.2); Hemolysis Index 1
[2021-11-05 17:11] LABS: BUN/Creatinine Ratio 7
== END 2021-11-05 20:00 | disposition left against medical advice (07) ==
LOC: ED 14:56
DX: R53.1 Weakness (principal); Z53.21 Procedure and treatment not carried out due to patient leaving prior to being seen by health care provider
CPT/HCPCS: 36415; 80053; 85025